=== PATIENT | female | born 1995 ===

== ENCOUNTER 2018-09-17 17:41 | Emergency (ER) | payer SELFPAY ==
[2018-09-17 17:46] VITALS: RESP 16
[2018-09-17] MEDS ORDERED: Alum-Mag Hydrox-Simethicone Susp (30 mL) PO ONE (19:58)
--- NOTE | 2018-09-17 20:36 | ED PDOC ---
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 States abdominal pain is concentrated in epigastric region, is worse after eating and sometimes associated with nausea, but no vomiting. No lower abdominal pain, no urinary symptoms, no fevers. States the pain is associated with throbbing headache as well, nonthunderclap, not maximal in onset. Denies vision changes, weakness, numbness, tingling, loss of function, neck stiffness. Patient has take no medications to alleviate any of the symptoms. Has no primary care doctor. Past Medical History Reviewed: Historical Data, Nursing Documentation, Vital Signs Vital Signs: Last Vital Signs Temp 98.1 F 09/17/18 17:44 Pulse 89 09/17/18 17:44 Resp 16 09/17/18 17:44 BP 123/72 09/17/18 17:44 Pulse Ox 98 09/17/18 17:44 - Medical History PMH: No Chronic Diseases - Surgical History Surgical History: No Surg Hx - Family History Family History: States: Unknown Family Hx - Allergies Allergies/Adverse Reactions: Allergies Allergy/AdvReac Type Severity Reaction Status Date / Time No Known Allergies Allergy Verified 09/17/18 17:44 Review of Systems ROS Statement: Except As Marked, All Systems Reviewed And Found Negative Constitutional: Negative for: Fever, Chills Gastrointestinal: Positive for: Nausea, Abdominal Pain Neurological: Positive for: Headache Physical Exam - Reviewed Nursing Documentation Reviewed: Yes Vital Signs Reviewed: Yes - Physical Exam Appears: Positive for: Well (Sitting up in bed with legs crossed, smiling and laughing), Non-toxic, No Acute Distress Head Exam: Positive for: ATRAUMATIC, NORMAL INSPECTION, NORMOCEPHALIC Skin: Positive for: Normal Color, Warm, DRY Eye Exam: Positive for: EOMI, Normal appearance, PERRL ENT: Positive for: Normal ENT Inspection Neck: Positive for: Normal, Painless ROM Cardiovascular/Chest: Positive for: Regular Rate, Rhythm Respiratory: Positive for: CNT, Normal Breath Sounds Gastrointestinal/Abdominal: Positive for: Normal Exam, Soft. 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 Negative for: Motor/Sensory Deficits, Aphasia, Facial Droop - ECG O2 Sat by Pulse Oximetry: 98 Pulse Ox Interpretation: Normal Medical Decision Making Medical Decision Makin23 year old with no PMHx presenting with headache and abdominal pain --Patient appears very well, normal vitals, non focal exam --Advised patient there her symptoms do not appear life threatening at this time, are most likely reflective of gastritis and headaches secondary to dehydration or non-pathological cause --Advised patient to try APAP and pepcid --Will refer to primary care for further workup as warranted Disposition - Clinical Impression Clinical Impression: Abdominal pain, Headache - Patient ED Disposition Is Patient to be Admitted: No - Disposition Referrals: [facility] [Outside] Disposition: Routine/Home Disposition Time: 20:42 Condition: STABLE Instructions: Headache, Adult, Acute Abdomen (Belly Pain), Adult (DC) Forms: [facility] (Qatari) Print Language: COMORAN
[2018-09-17 22:34] VITALS: BP 121/70; PULSE 82; TEMP 98.2; O2SAT 99
== END 2018-09-17 22:10 | disposition home or self-care (01) ==
LOC: H.ER 17:41
DX: R10.9 Unspecified abdominal pain (principal); R51 Headache

== ENCOUNTER 2018-10-19 10:22 | Emergency (ER) | payer OTHER ==
[2018-10-19 10:42] VITALS: O2SAT 99
[2018-10-19] MEDS ORDERED: Sodium Chloride 0.9% 1,000 ML IV STA (11:18)
--- NOTE | 2018-10-19 11:21 | ED PDOC ---
HPI: General Adult Time Seen by Provider: 10/19/18 11:19 Chief Complaint (Nursing): Female Genitourinary Chief Complaint (Provider): VAGINAL BLEEDING History Per: Patient (23 Y/O FEMALE HERE WITH VAGINAL BLEEDING TODAY HEAVY WITH CLOTS. PATIENT HAS NOT HAD MENSES SINCE 05/2018. NOTES ABDOMINAL PAIN.) Past Medical History Reviewed: Historical Data, Nursing Documentation, Vital Signs Vital Signs: Last Vital Signs Temp 96 F L 10/19/18 10:39 Pulse 72 10/19/18 10:39 Resp 18 10/19/18 10:39 BP 123/76 10/19/18 10:39 Pulse Ox 99 10/19/18 10:39 - Family History Family History: States: Unknown Family Hx - Home Medications Home Medications: Ambulatory Orders Medication Instructions Recorded Acetaminophen [Pain Reliever] 500 mg PO Q4 PRN #30 tablet 09/17/18 Famotidine [Pepcid] 20 mg PO BID PRN #20 tab 09/17/18 - Allergies Allergies/Adverse Reactions: Allergies Allergy/AdvReac Type Severity Reaction Status Date / Time No Known Allergies Allergy Verified 09/17/18 17:44 Review of Systems ROS Statement: Except As Marked, All Systems Reviewed And Found Negative Physical Exam - Reviewed Nursing Documentation Reviewed: Yes Vital Signs Reviewed: Yes - Physical Exam Appears: Positive for: Well, Non-toxic, No Acute Distress Head Exam: Positive for: ATRAUMATIC, NORMAL INSPECTION, NORMOCEPHALIC Skin: Positive for: Normal Color, Warm, DRY Eye Exam: Positive for: EOMI, Normal appearance, PERRL ENT: Positive for: Normal ENT Inspection Neck: Positive for: Normal, Painless ROM Cardiovascular/Chest: Positive for: Regular Rate, Rhythm Respiratory: Positive for: CNT, Normal Breath Sounds Gastrointestinal/Abdominal: Positive for: Normal Exam, Soft Pelvic Exam: Positive for: Active Bleeding (MILD VAGINAL BLEEDING NOTED) Back: Positive for: Normal Inspection Extremity: Positive for: Normal ROM Neurological/Psych: Positive for: Awake, Alert, Normal Tone - Laboratory Results Result Diagrams: 10/19/18 12:25 10/19/18 12:25 Urine POC: Negative Urine dip results: Positive for: Leukocyte Esterase, Blood, Nitrate. Negative for: Ketones, Glucose, Bilirubin, Protein - ECG O2 Sat by Pulse Oximetry: 99 - Progress ED Course And Treament: TORADOL 15MG IV X 1 DOSE Disposition - Clinical Impression Clinical Impression: Dysfunctional uterine bleeding - Patient ED Disposition Is Patient to be Admitted: No - Disposition [facility] Disposition: Routine/Home Disposition Time: 14:02 Condition: FAIR Instructions: Heavy Periods (DC) Print Language: IRANIAN
[2018-10-19 12:34] LABS: BASO # 0.1 K/uL (0.0-0.2); BASO % 0.5 % (0.0-2.0); EOS # 0.3 K/uL (0.0-0.7); EOS % 3.4 % (0.0-4.0); HEMOGLOBIN 14.6 g/dL (12.0-16.0); LYMPH # 3.3 K/uL (1.0-4.3); LYMPH % 33.2 % (20.0-40.0); MEAN CELL VOLUME 87.1 fl (81.0-99.0); MEAN CORPUSCULAR HEMOGLOBIN 29.1 pg (27.0-31.0); MEAN CORPUSCULAR HGB CONC 33.4 g/dL (33.0-37.0); MEAN PLATELET VOLUME 8.7 fl (7.2-11.7); MONO # 0.7 K/uL (0.0-0.8); MONO % 7.2 % (0.0-10.0); NEUT # 5.6 K/uL (1.8-7.0); NEUT % 55.7 % (50.0-75.0); NRBC % 0.1 % (0.0-0.0); RBC 5.02 Mil/uL (3.80-5.20); RED CELL DISTRIBUTION WIDTH 13.1 % (11.5-14.5)
[2018-10-19 12:35] LABS: PROTHROMBIN TIME 11.6 Seconds (9.8-13.1)
[2018-10-19 12:37] LABS: PARTIAL THROMBOPLASTIN TIME 39.4 Seconds (25.6-37.1)
[2018-10-19 12:48] LABS: ALB/GLOB RATIO 1.3 (1.0-2.1); ALBUMIN 4.6 g/dL (3.5-5.0); ALT/SGPT 74 U/L (9-52); AST/SGOT 36 U/L (14-36); BLOOD UREA NITROGEN 11 mg/dl (7-17); CALCIUM 9.3 mg/dL (8.4-10.2); GFR NON-AFRICAN AMERICAN > 60
[2018-10-19 14:30] VITALS: BP 119/61; PULSE 70; RESP 16; TEMP 97
== END 2018-10-19 14:31 | disposition home or self-care (01) ==
LOC: H.ER 10:22
DX: N93.8 Other specified abnormal uterine and vaginal bleeding (principal)
CPT/HCPCS: 80053; 81025; 84443; 85025; 85610; 85730; 87086; 96374; 99284; J1885; J7030